=== PATIENT | male | born 1950 | race Caucasian/White ===

== ENCOUNTER 2019-06-05 18:40 | Emergency (ER) | payer OTHER ==
[~2019-06-05] VITALS: Ht 165.1 cm; Wt 68.0 kg
[2019-06-05 18:40] VITALS: BP 0/0
[~2019-06-05 18:40] MED LIST: CALCIUM CHLORIDE 10% 100 MG/ML SYR IVP ONE
--- NOTE | 2019-06-05 18:40 | NUR ---
69 Y/O M BIBA FROM [facility] FULL [facility]REST, ACLS IN PROGRESS, CPR RESUMED BY STAFF AT [facility]. SEE CODE SHEET FOR FURTHER DETAILS.
[2019-06-05] MEDS ORDERED: NOREPINEPHRINE 4 MG/4 ML VIAL IV ONE ×2 (18:58→19:34)
--- NOTE | 2019-06-05 19:00 | NUR ---
PATIENT BIBA FULL ARREST AT 1840. CPR PERFORMED. INTUBATED AT [address] JOY WITH 7.5 ETT AT 26 CM @ LIPLINE. ETT PLACEMENT CONFIRMED BY COLOR CHANGE ON CO2 DETECTOR. GOOD CHEST RISE NOTED. END TIDAL CO2 IN PLACE AND HOOKED UP TO MONITOR. BAGGED WITH 100% FIO2. PATIENT GAINED ROSC AND PLACED ON VENTILATOR AT DOCUMENTED SETTINGS. VENT PLUGGED INTO RED OUTLET WITH WHEELS LOCKED AND AMBU BAG AT BEDSIDE. VENT ALARMS ON AND AUDIBLE. SUCTIONED COPIOUS AMOUNT OF THIN RED, FROTHY SECRETIONS.
--- NOTE | 2019-06-05 19:08 | NUR ---
ASSUMED CARE OF PT AT THIS TIME. PT BIBA FULL ARREST. PT CURRENTLY HAS PULSE, ET TUBE IN PLACE 7.5, 26 AT LIP. OG TUBE IN PLACE, BLOOD GOING THROUGH OG TUBE. 190, PT BP LOW, PT HR 40s ON MONITOR. PULSE CHECK, NO PULSE PALPABLE, CPR INITIATED. SEE CODE SHEET FOR MORE INFO.
--- NOTE | 2019-06-05 19:09 | NUR ---
PATIENT CODED AND CPR INITIATED.
[2019-06-05] MEDS: NOREPINEPHRINE 4 MG in DEXTROSE 5% 250 ML IV ONE ×2 (19:15→21:09)
--- NOTE | 2019-06-05 19:15 | NUR ---
PT ROSC AT 1915. DR. CURTIS IN ROOM. VERBAL ORDER TO TITRATE UP LEVOPHED 5MCG Q5MINS FOR MAX OF 30MCG/MIN.
[2019-06-05] MEDS ORDERED: NACL 0.9% 1,000 ML IV ONE (19:18)
[2019-06-05 19:30] VITALS: BP 80/53
--- NOTE | 2019-06-05 19:30 | NUR ---
RED SMALL SCABS NOTED ON LEGS, CHEST AND ARMS. NOT PETECHIAE
--- NOTE | 2019-06-05 19:36 | NUR ---
ABG DRAWN. RESULTS GIVEN TO ED PHYSICIAN, DR. CURTIS. VENT CHANGES MADE ACCORDINGLY BASED OFF ABG ORDERED. VT INCREASED TO 500, RATE INCREASED TO 20. WILL CONTINUE TO MONITOR.
--- NOTE | 2019-06-05 19:40 | NUR ---
VERBAL ORDER DR. CURTIS START LEVOPHED 16MG/250ML AT 20MCG/MIN AND INCREASE 5MCG X 5 MINS TO MAXOF 30MCG/MIN.
--- NOTE | 2019-06-05 19:40 | NUR ---
LEVOPHED 4MG/250 STOPPED, LEVOPHED 16MG/250ML STARTED. VERBAL ORDER EVER TO START LEVOPHED AT 20MCG/MIN.
[2019-06-05 19:48] LABS: BASOPHILS % (AUTO) 0.5 % (0.0-2.0); EOSINOPHILS # (AUTO) 0.1 K/uL (0-0.4); EOSINOPHILS % (AUTO) 0.8 % (0.0-4.0); LYMPHOCYTES # (AUTO) 1.5 K/uL (2.0-11.5); LYMPHOCYTES % (AUTO) 19.7 % (20.5-51.1); MEAN CORPUSCULAR HEMOGLOBIN 30 pg (27-31); MEAN CORPUSCULAR HGB CONC 32 g/dL (33-37); MEAN CORPUSCULAR VOLUME 95.5 fL (80-94); MONOCYTES # (AUTO) 0.2 K/uL (0.8-1.0); MONOCYTES % (AUTO) 3.2 % (1.7-9.3); NEUTROPHILS # (AUTO) 5.7 K/uL (1.8-7.7); NEUTROPHILS % (AUTO) 75.8 % (42.2-75.2); PLATELET COUNT (AUTO) 151 K/uL (140-450); RED CELL DISTRIBUTION WIDTH 15.9 % (11.6-13.7); WHITE BLOOD COUNT (AUTO) 7.5 K/uL (4.8-10.8)
--- NOTE | 2019-06-05 19:53 | NUR ---
ERMD AT BEDSIDE
[2019-06-05] MEDS: EPINEPHrine 1:1000 - 1 MG/ML AMP ONE ×2 (19:55→20:58)
[2019-06-05 19:56] LABS: PROTHROMBIN TIME 29.2 secs (10.8-13.4)
--- NOTE | 2019-06-05 19:58 | NUR ---
DR. CURTIS RIGHT FEMORAL CENTRAL LINE ATTEMPT UNSUCCESSFUL.
[2019-06-05] MEDS ORDERED: NOREPINEPHRINE 16 MG in DEXTROSE 5% 250 ML IV STA (20:08)
--- NOTE | 2019-06-05 20:09 | NUR ---
DR. CURTIS LEFT FEMORAL CENTRAL LINE ATTEMPT, UNSUCCESSFUL.
[2019-06-05] MEDS ORDERED: EPINEPHrine PFS 0.1 MG/ML SYR IVP ONE ×3 (20:10→20:54)
[2019-06-05 20:12] LABS: ALBUMIN 1.8 g/dL (3.4-5.0); ANION GAP 31.3 (8-16); CARBON DIOXIDE 10.9 mmol/L (21-32); TOTAL BILIRUBIN 0.9 mg/dL (0.0-1.0)
[2019-06-05 20:15] LABS: CREATININE 10.5 mg/dL (0.6-1.3); POTASSIUM 6.2 mmol/L (3.5-5.1)
[2019-06-05 20:18] LABS: HEMOGLOBIN 6.6 g/dL (12.0-18.0)
[2019-06-05 20:32] LABS: APPEARANCE,URINE SL CLOUDY (CLEAR); BILIRUBIN,URINE NEGATIVE (NEGATIVE); BLOOD, URINE 3+ (NEGATIVE); COLOR,URINE YELLOW (YELLOW); LEUKOCYTE ESTERASE ,URINE 2+ (NEGATIVE); NITRITE, URINE NEGATIVE (NEGATIVE); UGLUCOSE NEGATIVE (NEGATIVE)
[2019-06-05] MEDS ORDERED: EPINEPHrine 1:1000 - 1 MG/ML AMP ONE (20:36)
[2019-06-05 20:41] LABS: RBC,URINE TOO NUMEROUS TO COUN /HPF (0-5); WBC,URINE 80-100 /HPF (0-5)
--- NOTE | 2019-06-05 20:45 | NUR ---
RIGHT IJ CENTRAL LINE ATTEMPT, UNSUCCESFUL BY DR. CURTIS
--- NOTE | 2019-06-05 20:52 | NUR ---
CALLED TO ED, PATIENT CODING AGAIN. CPR INITIATED. BAGGED WITH 100% OXYGEN. TIME OF PRONOUNCED AT [address] CURITS.
--- NOTE | 2019-06-05 20:53 | NUR ---
PT HR DECREASING TO 40s, BP 40s, PULSE CHECK, NO PULSE, CPR STARTED, SEE CODE SHEET.
--- NOTE | 2019-06-05 20:53 | NUR ---
VERBAL ORDER FROM DR CURTIS FOR 1MG EPINEPHRINE IVP AT THIS TIME, OVERRIDE PULLED MEDICATION FROM [facility], DOCUMENTED ADMINISTRATION BY ALEXANDREA SOLANO ON CODE BLUE SHEET.
--- NOTE | 2019-06-05 20:53 | NUR ---
DR. CURTIS LEFT INTERAL JUGLAR CENTAL LINE ATTEMPT SUCCESSFUL.
--- NOTE | 2019-06-05 20:57 | NUR ---
PT PRONOUNCED BY DR. CURTIS AT THIS TIME
--- NOTE | 2019-06-05 21:39 | NUR ---
SPOKE WITH SISTER IN LAW CECILE JAMESJACY, CECILE PROVIDED NUMBER [facility] AND SISTER WILFREDO WEINSTEIN . CECILE STATES SHE LIVES OUT OF STATE AND WILL CALL WILFREDO WHO LIVES IN [place] TO SEE IF SHE CAN GIVE A RIDE TO HOSPITAL. KI DOES NOT HAVE ANY TRANSPORTATION TO GET TO HOSPITAL.
--- NOTE | 2019-06-05 21:40 | NUR ---
KI CALLED, [facility] TO COM[facility]. NO TRANSPORTATION TO COM[facility] TO [facility].
--- NOTE | 2019-06-05 21:44 | NUR ---
Physical Meteorologist called waiting for call back from Physical Meteorologist
--- NOTE | 2019-06-05 21:51 | NUR ---
[facility] CALLED AT THIS TIME.
--- NOTE | 2019-06-05 22:02 | NUR ---
[facility] REFERAL SHIRA # [phone]
--- NOTE | 2019-06-05 22:03 | NUR ---
KATE TO GET AHOLD OF SISTER WILFREDO WEINSTEIN, NO ANSWER
--- NOTE | 2019-06-05 22:15 | NUR ---
SISTER IN LAW WILFREDO CALLED, PICKING UP [facility] AND COMING TO [facility]OPSITAL.
[2019-06-05] MEDS ORDERED: SODIUM BICARBONATE 8.4% PFS 50 MEQ/50 ML SYR IVP ONE (22:25)
[2019-06-05] MEDS ORDERED: EPINEPHrine 1:1000 (1 mg/mL) 6 MG in DEXTROSE 5% 250 ML IV ONE (22:25)
--- NOTE | 2019-06-05 22:36 | NUR ---
AND SISTER IN LAW MOVED TO TRIAGE ROOM, DR. CURTIS ON WAY TO SPEAK WITH FAMILY.
--- NOTE | 2019-06-05 23:05 | NUR ---
CALLED [employer] SALES COORDINATOR FOR SECOND TIME, FAMILY ABLE TO PROVIDE MEDICAL HX. PT HAS HX OF KIDNEY REMOVED 2018, PT REFUSED DILAYSIS, MULITPLE INFECTIONS IN TEETH AND OTHER LOCATIONS. PT NON-COMPLIANT WITH HEALTH CARE RECOMENDATION AND MEDICATIONS.
--- NOTE | 2019-06-05 23:51 | NUR ---
MARILYN BOYD REMOVING ALL IV AND TUBES FOR FAMILY TO VISIT. JAM PIERSON CHOSEN BY FAMILY, CALLED MORTUARY. THEY STATES THEY WILL BE BY SHORTLY.
[2019-06-06 01:10] VITALS: BP 0/0
--- NOTE | 2019-06-06 01:10 | NUR ---
PT TAKEN BY MORTUARY TRANSPORT
== END 2019-06-05 20:57 | disposition expired ==
LOC: MED 18:40
DX: I46.9 Cardiac arrest, cause unspecified (principal); Z98.890 Other specified postprocedural states
CPT/HCPCS: 31500; 36415; 36556; 36600; 80053; 81001; 82803; 83605; 83690; 83880; 84484; 85025; 85610; 87040; 87086; 92950; 93005; 96365; 96366; 96375; 99285; J0171; J3490; J7030; J7060